=== PATIENT | male | born 1960 | race Hispanic/Latino ===

== ENCOUNTER 2024-11-17 07:20 | Inpatient (IN) | payer SELFPAY ==
[~2024-11-17] VITALS: Ht 185.4 cm; Wt 82.6 kg
--- NOTE | 2024-11-17 07:30 | NUR ---
SITUATED IN RM 15 NOW.
--- NOTE | 2024-11-17 07:32 | ERN ---
General Chief Complaint: Abnormal Labs Stated Complaint: ABNORMAL LABS Time Seen by MD: 07:26 Source: patient History of Present Illness Initial Comments Patient is a 64 y/o male here for evaluation of abnormal labs. Per patient he was been seen for his gout and labs were collected . Labs showed low platelets, which her pcp notified him abnout thew abnormal labs. Patient states he is feeling fine and is here for further evaluation/. Allergies: Coded Allergies: No Known Drug Allergies (Unverified Allergy, Unknown, 11/17/24) Past Medical History Past Medical History: No Pertinent History Past Surgical History: None ROS Dictation CONSTITUTIONAL: No chills, no fever, no weakness, no diaphoresis, no malaise. HEAD/FACE: No signs of trauma. EENT: No eye pain, no blurred vision, no tearing, no double vision, no ear pain, no ear discharge, no nose pain, no nasal congestion, no throat pain, no throat swelling, no mouth pain. RESPIRATORY: No cough, no orthopnea, no SOB, no stridor, no wheezing. CARDIOVASCULAR: No chest pain, no edema, no palpitations, no syncope. GASTROINTESTINAL/ABDOMINAL: No abdominal pain, no constipation, no diarrhea, no nausea, no vomiting. GENITOURINARY: No abnormal discharge, no dysuria, no frequent urination, no hematuria. No complaints of pain in the genitals. MUSCULOSKELETAL: No back pain, no gout, no joint pain, no joint swelling, no muscle pain, no muscle stiffness, no neck pain. INTEGUMENTARY: No change in color, no change in hair/nails, no dryness, no lesion, no lumps, no rash. NEUROLOGICAL/PSYCH: No anxiety, not depressed, no emotional problem, no headache, no numbness, no pre-existing deficit, no history of seizures, no tremors, no weakness. HEMATOLOGIC/LYMPHATIC: Not anemic, no history of blood clots, no apparent bleeding, no bruising, glands not swollen. All Systems Negative, Except as Noted. Physical Exam Physical Exam Dictation VITAL SIGNS: Reviewed. GENERAL APPEARANCE: Alert, oriented x3, no acute distress, obese. HEAD AND FACE: Non-traumatic. EYES: PERRL, pink conjunctivas, eyelid no trauma, anterior chamber clear. EARS: Pinnas intact and no signs of trauma or erythema. Ear canals clear and no discharge. TMs no erythema. NOSE: No discharge, no bleeding. OROPHARYNX: Mouth normal, teeth no caries, tongue pink. Pharynx clear, no erythema. Tonsils no exudates, no abscesses noted. Mucous membrane moist. NECK: Supple, non-tender, no thyromegaly, no masses, no JVD, no bruits. BREAST: Deferred. CHEST: No tenderness, no crepitus, no paradoxical movement, no retractions. LUNGS: Clear, well-ventilated, symmetric, no rales, no wheezing, no rhonchi, no stridor, good breath sounds bilaterally. HEART: Regular rate, regular rhythm, no murmur, no gallops. VASCULAR: No peripheral edema. ABDOMEN: Soft, positive bowel sounds, nondistended, no guarding, nontender, no rebound, no masses no hepatomegaly, no splenomegaly, no Rivera's sign, no hernias. RECTAL: Deferred. GENITAL: Deferred. NEUROLOGICAL: Normal speech, gross motor function intact, gross sensory function intact. MUSCULOSKELETAL: Neck nontender, full range of motion, back nontender, full range of motion. EXTREMITIES: Nontender, full range of motion. SKIN: Color pink, dry, no turgor, no rash, no lacerations, no abrasions, no contusions. LYMPHATICS: Deferred. Results Laboratory and Microbiology Lab and Micro Result Laboratory Tests Test 11/17/24 07:53 White Blood Count 5.6 K/uL (4.8-10.8) Red Blood Count 4.99 MIL/uL (4.50-6.20) Hemoglobin 17.3 g/dL (14.0-18.0) Hematocrit 46.8 % (42-54) Mean Corpuscular Volume 93.8 fL (79-99) Mean Corpuscular Hemoglobin 34.7 pg (27.0-33.0) H Mean Corpuscular Hemoglobin Concent 37.0 g/dL (32.0-36.0) H Red Cell Distribution Width 12.6 % (11.0-15.5) Platelet Count 63 K/uL (130-400) L Mean Platelet Volume 10.3 fL (7.5-10.5) Immature Granulocyte % (Auto) 0.4 % (0-1) Neutrophils (%) (Auto) 59.8 % (40.0-77.0) Lymphocytes (%) (Auto) 28.5 % (21.0-51.0) Monocytes (%) (Auto) 7.4 % (3.0-13.0) Eosinophils (%) (Auto) 3.4 % (0.0-8.0) Basophils (%) (Auto) 0.5 % (0.0-5.0) Neutrophils # (Auto) 3.4 K/uL (1.8-7.7) Lymphocytes # (Auto) 1.6 K/uL (1.0-4.8) Monocytes # (Auto) 0.4 K/uL (0.1-1.0) Eosinophils # (Auto) 0.19 K/uL (0.00-0.70) Basophils # (Auto) 0.03 K/uL (0.00-0.20) Absolute Immature Granulocyte (auto 0.02 K/uL (0-1) Nucleated Red Blood Cells 0.0 % (0.0-0.19) Sodium Level 140 mmol/L (136-145) Potassium Level 4.0 mmol/L (3.5-5.1) Chloride Level 103 mmol/L (101-111) Carbon Dioxide Level 29 mmol/L (21-32) Blood Urea Nitrogen 16 mg/dL (7-18) Creatinine 1.0 mg/dL (0.5-1.3) Glomerular Filtration Rate Calc 85 mL/min (>90) Random Glucose 149 mg/dL (70-105) H Total Calcium 9.2 mg/dL (8.5-10.1) Labs Reviewed?: Yes MDM MDM: Differential diagnosis: ITP, acute thrombocytopenia, Rationale: Tests considered and ordered secondary to shared decision making include: Previous outside records reviewed: Old ER visits. Risk of complication and/or morbidity or mortality of patient management: None Medications-Per medication reconciliation Need for hospitalization: Patient does meet criteria for hospitalization. Need for emergency major/minor surgery: No There are no social concerns with this patient. Prescription drug management Prescriptions will include symptomatic care Patient's prior external medical records from other ER visits were reviewed by me as indicated. Prior testing and results from previous visits were reviewed. Prior tests were taken into account with medical decision making and resource utilization, independent historian/historians were used to obtain complete medical history. I independently interpreted the test that were performed, results were reviewed by me and considered findings on radiology if ordered. Medical management and examination interpretation discussions were had by me with other qualified healthcare professionals as indicated for the patient's care. Patient will be admitted under the care of hospitalist group for ongoing management. ED Course Orders Procedure Category Date Status Time Cbc With Differential LAB 11/17/24 In Process 07:26 Basic Metabolic Panel LAB 11/17/24 Complete 07:26 Vital Signs Date Time Temp Pulse Resp B/P (MAP) Pulse Ox O2 Delivery O2 Flow Rate FiO2 11/17/24 07:59 57 16 138/86 97 Room Air* 0 21 11/17/24 07:24 97.9 61 17 141/90 98 Room Air 0 DX & DISP Disposition: Inpatient Decision to Admit Time: 09:28 Departure Impression: Primary Impression: Acute ITP Condition: Stable Referrals: SELF,REFERRAL (PCP) JONAS KAY MD Nov 17, 2024 07:32
[2024-11-17 08:02] LABS: IMMATURE GRANULOCYTE ABSOLUTE 0.02 K/uL (0-1); NUCLEATED RED BLOOD CELLS 0.0 % (0.0-0.19); PLATELET COUNT (AUTO) 63 K/uL (130-400); RED BLOOD CELL COUNT(AUTO) 4.99 MIL/uL (4.50-6.20); RED CELL DISTRIBUTION WIDTH 12.6 % (11.0-15.5); WHITE BLOOD COUNT (AUTO) 5.6 K/uL (4.8-10.8)
[2024-11-17 08:13] LABS: CREATININE 1.0 mg/dL (0.5-1.3); GLOMERULAR FILTR. RATE CALC 85.0 mL/min (>90); GLUCOSE,RANDOM 149.0 mg/dL (70-105); SODIUM SERUM 140.0 mmol/L (136-145); UREA NITROGEN, BLOOD 16.0 mg/dL (7-18)
[2024-11-17] MEDS ORDERED: PHARMACY COMMUNICATION MISC PRN (10:00)
--- NOTE | 2024-11-17 10:01 | HP ---
[facility] HISTORY AND PHYSICAL Date of Service: Nov 17, 2024 Time of Service: 10:00 HISTORY OF PRESENT ILLNESS: 64-year-old male with history of alcohol use who presented to the hospital secondary to abnormal labs. Patient had seen his primary care provider in [place] due to concern for gout. He had his labs checked including CBC, CMP. He was noted to have low platelet count of 912881 and his liver markers were also elevated including GGT. He was treated for gout and was recommended to come to the hospital for further evaluation. Patient denies any chest pain, abdominal pain, nausea, vomiting, melena, hematochezia, hematemesis. He does state he gets short of breath with activity sometimes but is able to perform yd work at home. Denies any falls, syncopal episode. Denied any epistaxis, mucosal bleeding. Denied any previous history of excessive bleeding from cuts. He has noted bruises on his upper extremity. Denies any diarrhea, fever, chills, night sweats, weight loss. He was also noted to have elevated blood pressure in his primary care's office with systolics noted to be in the 180s. He currently does not take any medications at home. He also does not check his blood pressure at home. Patient denied any upper or lower extremity weakness. The patient does endorse smoking alcohol and he drinks around 4-5 beers every other day for at least 20 years. His last drink was two days ago. Denies any anxiety, hallucinations, suicidal, homicidal ideation. Secondary to abnormal aspiration was brought to the hospital for further evaluation In the ED labs were notable for white count of 5.6, hemoglobin was 17.3, [place] [address], was 140, potassium was 4.0, chloride was 103, creatinine was 1.0, blood glucose was 149. Patient had a abdominal ultrasound done in [place] which is currently in [place]. Per patient it was noted to be normal On presentation to the ED patient's temperature was 97.9, heart rate was 61, blood pressure was 141/90, patient was saturating 98% on room REVIEW OF SYSTEMS CONSTITUTIONAL: Denies fevers, chills, or night sweats. No unintentional weight loss reported. NEUROLOGICAL: Denies headache, amaurosis fugax, motor weakness, sensory deficit, vertigo/spinning sensation, gait abnormalities, or tremors. ENT: No hearing loss, otalgia, otorrhea, rhinitis, rhinorrhea, hoarseness, or sore throat. CARDIOVASCULAR: Denies any exertional angina, dyspnea on exertion, orthopnea, paroxysmal nocturnal dyspnea, palpitations, life-threatening arrhythmias, claudication. PULMONARY: Denies any cough, phlegm/sputum, hemoptysis, pleuritic chest pain. Positive for shortness of breaths SLEEP: Denies morning headaches, daytime somnolence or napping. Denies difficulty falling asleep, staying asleep, waking from sleep. Denies knowledge of snoring. GASTROINTESTINAL: Positive for abdominal distention. Denied any abdominal pa in, nausea, vomiting, melena, hematochezia, hematemesis GENITOURINARY: Denies frequency, urgency, nocturia, hematuria or incontinence (Storage/Irritative symptoms.) Low urinary stream, straining to void, urinary intermittency or hesitancy, splitting of the voiding stream, terminal dribbling. ENDOCRINOLOGIC: Denies polyuria, polydipsia, polyphagia or heat/cold intolerances. HEMATOLOGIC: Denies thrombophilia/previous clots, or coagulopathy/bleeding disorders. ONCOLOGIC: Denies personal history of malignancy. DERMATOLOGIC: Denies rashes or pruritus. PSYCHIATRIC: Denies any suicidal or homicidal ideation. Denies hallucinations. PAST MEDICAL HISTORY: History of alcohol use PAST SURGICAL HISTORY: Denied any previous surgical history PAST SOCIAL HISTORY: Denied any smoking. Drinks around 4-5 beers every other day for at least 20 years. Denied any drug use FAMILY HISTORY: Denied any pertinent family history Coded Allergies: No Known Drug Allergies (Unverified Allergy, Unknown, 11/17/24) PHYSICAL EXAM GENERAL APPEARANCE: The patient is awake, alert, and oriented, in no acute cardiopulmonary distress. NEUROLOGICAL: Cranial nerves II-XII grossly intact. Motor is 5/5 in bilateral upper and lower extremities proximal to distal. No sensory deficits. HEENT: Face is symmetric. Pupils are equal and reactive. Extraocular movements are intact. NECK: Supple. No JVD. No thyromegaly. No submental, submandibular, pre- /postauricular, occipital or supraclavicular lymphadenopathy. CHEST: Normal chest expansion. No Telemetry. LUNGS: Absence of any rales, rhonchi or any wheezing. CARDIOVASCULAR: Regular. S1 and S2 normal. No appreciable rubs, murmurs or gallops. ABDOMEN: Soft, nontender, and mildly distended. There is no rebound, voluntary guarding, or rigidity. : Deferred. No Wolf. EXTREMITIES: Non-edematous and not cyanotic. No clubbing. Good capillary refill. SKIN: Small skin bruising noted in the upper extremity Vital Sign (Last 24 Hours) 11/17/24 11/17/24 07:24 07:59 Temp 97.9 Pulse 57 Resp 16 B/P (MAP) 138/86 Pulse Ox 97 O2 Delivery Room Air* O2 Flow Rate 0 FiO2 21 LABS: Laboratory: Test 11/17/24 07:53 Range/Units White Blood Count 5.6 4.8-10.8 K/uL Red Blood Count 4.99 4.50-6.20 MIL/uL Hemoglobin 17.3 14.0-18.0 g/dL Hematocrit 46.8 42-54 % Mean Corpuscular Volume 93.8 79-99 fL Mean Corpuscular Hemoglobin 34.7 H 27.0-33.0 pg Mean Corpuscular Hemoglobin Concent 37.0 H 32.0-36.0 g/dL Red Cell Distribution Width 12.6 11.0-15.5 % Platelet Count 63 L 130-400 K/uL Mean Platelet Volume 10.3 7.5-10.5 fL Immature Granulocyte % (Auto) 0.4 0-1 % Neutrophils (%) (Auto) 59.8 40.0-77.0 % Lymphocytes (%) (Auto) 28.5 21.0-51.0 % Monocytes (%) (Auto) 7.4 3.0-13.0 % Eosinophils (%) (Auto) 3.4 0.0-8.0 % Basophils (%) (Auto) 0.5 0.0-5.0 % Neutrophils # (Auto) 3.4 1.8-7.7 K/uL Lymphocytes # (Auto) 1.6 1.0-4.8 K/uL Monocytes # (Auto) 0.4 0.1-1.0 K/uL Eosinophils # (Auto) 0.19 0.00-0.70 K/uL Basophils # (Auto) 0.03 0.00-0.20 K/uL Absolute Immature Granulocyte (auto 0.02 0-1 K/uL Nucleated Red Blood Cells 0.0 0.0-0.19 % Sodium Level 140 136-145 mmol/L Potassium Level 4.0 3.5-5.1 mmol/L Chloride Level 103 101-111 mmol/L Carbon Dioxide Level 29 21-32 mmol/L Blood Urea Nitrogen 16 7-18 mg/dL Creatinine 1.0 0.5-1.3 mg/dL Glomerular Filtration Rate Calc 85 >90 mL/min Random Glucose 149 H 70-105 mg/dL Total Calcium 9.2 8.5-10.1 mg/dL Current Medications Medications (Trade) Dose Ordered Sig/Judi Route PRN Reason Start Time Stop Time Status Last Admin Dose Admin Chlordiazepoxide HCl (LIBrium 25 MG CAP) 25 mg Q4H PRN PO ALCOHOL WITHDRAWAL PROTOCOL 11/17/24 10:00 11/24/24 09:59 UNV Famotidine (Pepcid 20mg Vial) 20 mg BID IV 11/17/24 21:00 12/17/24 20:59 UNV Hydralazine HCl (APRESOLine 20MG INJ) 10 mg Q6H PRN IV ADMINISTER FOR SBP > 180 11/17/24 10:00 12/17/24 09:59 UNV Pharmacy Profile Note (Pharmacy Communication) 1 each PROTOCOL PRN MISC ETOH Withdrawal Score changes 11/17/24 10:00 11/24/24 09:59 UNV Thiamine HCl 100 mg/Folic Acid 1 mg/Multivitamins/ Minerals 10 ml/ Sodium Chloride 1,011.2 ml @ 100 mls/ hr Q24H IV 11/17/24 10:00 11/19/24 20:07 UNV DIAGNOSTICS / RADIOLOGY: [ ] ASSESSMENT: Moderate Thrombocytopenia Elevated LFT History of alcohol use PLAN: - patient to be admitted to medical-surgical unit with telemetry under observation -in reference to thrombocytopenia. We will check CBC with manual differential. We will obtain hepatitis panel, HIV, KAMLESH. Obtain a CT abdomen pelvis. Thrombocytopenia likely in setting of alcohol use. We will request consultation with Hematology. -in reference to elevated LFT. Obtain a LFT panel. We will follow up on CT abdomen pelvis. Obtain a hepatitis panel. -patient to be monitored for alcohol withdrawals. Patient to be started on banana bag -closely monitor for hypertension. We will consider initiation of antihypertensive blood pressure remains elevated. Patient remains normotensive when seen at bedside - further orders per hospitalization course Advanced Care Planning Which of the following were discussed: Hospice care: Yes __ No _x_ Therapeutic options: Yes __ No __ Advance directives: Yes __ No __ Other discussions: Pt is full code Discussed with who?: patient (Patient, family or surrogates) Voluntary nature of this service was explained to the patient? Yes _x_ No __ Amount of time spent: 20 minutes NYA Santana MD, MD Nov 17, 2024 10:01
[2024-11-17 10:16] LABS: PLATELET MORPHOLOGY COMMENT DECREASED
[2024-11-17 10:28] LABS: INR 1.05 (0.85-1.15)
[2024-11-17] MEDS ORDERED: PHARMACY COMMUNICATION MISC SCH (10:30)
[2024-11-17 10:51] LABS: ASPARTATE AMINOTRANSFERASE 48.0 U/L (10-37); TOTAL PROTEIN, SERUM 7.7 g/dL (6.0-8.3)
[2024-11-17 10:54] LABS: HIV 1&2 ANTIBODY Non-Reactive (Negative)
[2024-11-17 11:06] LABS: NUCLEATED RED BLOOD CELLS 0.0 % (0.0-0.19); PLATELET COUNT (AUTO) 60 K/uL (130-400); RED BLOOD CELL COUNT(AUTO) 5.00 MIL/uL (4.50-6.20); RED CELL DISTRIBUTION WIDTH 12.6 % (11.0-15.5); WHITE BLOOD COUNT (AUTO) 5.4 K/uL (4.8-10.8)
--- NOTE | 2024-11-17 11:14 | HMCIMG ---
EXAM: CR Chest, 1 View. CLINICAL HISTORY: SOB COMPARISON: None provided. FINDINGS: LUNGS: The lungs show no infiltrate or other acute finding. PLEURAL SPACES: No pleural effusion or pneumothorax. MEDIASTINUM: Cardiac size and mediastinal contours within normal limits. BONES: No acute osseous abnormality. IMPRESSION: No acute cardiopulmonary pathology is evident. /[place]
[2024-11-17 11:22] LABS: ALCOHOL, BLOOD < 3 mg/dL (0-10)
[2024-11-17 11:23] LABS: GAMMA GLUTAMYL TRANSFERASE 657 U/L (5-85)
--- NOTE | 2024-11-17 11:25 | NUR ---
CRITICAL LAB REPORTED
--- NOTE | 2024-11-17 11:31 | HMCIMG ---
EXAM: CT Abdomen and Pelvis without IV contrast CLINICAL HISTORY: Abdominal distention. Elevated LFT. TECHNIQUE: Thin collimated axial CT images of the abdomen and pelvis were obtained with sagittal and coronal reformatted images also submitted. CT scan is done according to ALARA (As Low As Reasonably Achievable). CONTRAST: None. COMPARISON: None. FINDINGS: Unremarkable visualized lung parenchyma. No focal abnormality within the gallbladder, pancreas, adrenals, or kidneys. The liver is small with diffuse surface nodularity, suggesting liver cirrhosis. Multiple tiny calcifications within the liver. Mild splenomegaly. There is no obvious bowel wall thickening. Bowel loops are normal in caliber without evidence of obstruction or ileus. The appendix is normal. There is no abnormality within the urinary bladder. Unremarkable reproductive organs. No lymphadenopathy. No free fluid. Bilateral small inguinal hernia containing fat. There is no acute osseous abnormality. Mild thoracolumbar spondylosis. IMPRESSIONS: No acute process in the abdomen or pelvis. Liver cirrhosis. Mild splenomegaly. /[place]
[2024-11-17 11:36] LABS: AMPHET/METH SCREEN,URINE NEGATIVE (NEGATIVE); BARBITURATE SCREEN, URINE NEGATIVE (NEGATIVE); CANNABINOID SCREEN,URINE NEGATIVE (NEGATIVE); COCAINE SCREEN,URINE NEGATIVE (NEGATIVE)
[2024-11-17 12:04] LABS: BAND NEUTROPHILS % (MANUAL) 1 % (0-2); EOSINOPHILS % (MANUAL) 3 % (1-6); LYMPHOCYTES % (MANUAL) 17 % (22-44); MAN.DIFF COMMENT-IMPRESSION MANUAL DIFFERENTIAL; MONOCYTES % (MANUAL) 5 % (2-9); SEGMENTED NEUTROPHILS % 74 % (40-70)
[2024-11-17 12:05] LABS: PLATELET MORPHOLOGY COMMENT DECREASED
[2024-11-17] MEDS: THIAMINE HCL 100 MG, FOLic ACID 5 MG/ML VIAL 1 MG in 0.9%NACL 1000ML 1,000 ML IV SCH (12:31)
--- NOTE | 2024-11-17 13:27 | CONS ---
HEMATOLOGY CONSULTATION REASON FOR CONSULTATION: Thrombocytopenia. HISTORY OF PRESENT ILLNESS: This is a 64-year-old male patient admitted with complaints of abdominal pain. On lab work, he was found to have significant LFT elevation and thrombocytopenia. He admits to drinking at least a 6-pack daily for several years now. He denies any fever or chills. He denies any easy bruising or bleeding. He denies any hematochezia or melanotic stools. Weight has been stable. No nausea, vomiting. PAST MEDICAL HISTORY: Negative for hypertension, CAD, CVA. SOCIAL HISTORY: He denies any smoking, but drinks heavily, at least a 6-pack per day. No illicit drug use. , retired. FAMILY HISTORY: Noncontributory. MEDICATIONS: As per the chart. ALLERGIES: None. REVIEW OF SYSTEMS: As per history of present illness. PHYSICAL EXAMINATION: GENERAL: Elderly male patient, alert, in no acute distress. VITAL SIGNS: Stable, febrile. HEENT: With pale sclerae, no jaundice, no oropharyngeal lesions. NECK: Supple. No lymphadenopathy. HEART: Regular and rhythmic. LUNGS: Clear to auscultation bilaterally. ABDOMEN: Soft. Some tenderness to palpation in the upper abdomen. No organomegaly. Bowel sounds present. EXTREMITIES: No pitting edema. No calf tenderness. LABORATORY DATA: Lab data reviewed with a platelet count 60. LFT elevation. PT and PTT within normal limits. ASSESSMENT: * Thrombocytopenia, possible secondary to alcohol or hepatic disease. * LFT elevation. * Abdominal pain. PLAN: The patient remains stable. He is scheduled for abdominal ultrasound with followup results. Also recommended to have peripheral blood smear, hepatitis panel, HIV test. I will follow results and have our discussion. TID: [id number] RECEIPT: [id number]
--- NOTE | 2024-11-17 13:31 | NUR ---
REASSESSMENT OF CONTINOUS INFUSION
--- NOTE | 2024-11-17 13:38 | HMCIMG ---
EXAM: US Abdomen, Right Upper Quadrant. CLINICAL HISTORY: Assess for cirrhosis, gallbladder, and CBD. Elevated LFT. TECHNIQUE: Right upper quadrant sonography performed with image documentation. COMPARISON: CT from earlier today. FINDINGS: LIVER: Enlarged in size, measuring 17.5 cm, with coarse echotexture and surface nodularity. A small, simple cyst measuring 0.8 cm is seen in the left lobe. No other mass. GALLBLADDER: The gallbladder appears normal. Normal wall thickness, 0.3 cm. No gallstones are evident. COMMON BILE DUCT: No dilatation. PANCREAS: The visualized pancreas appears within normal limits. The distal pancreas is obscured by bowel gas. RIGHT KIDNEY: Unremarkable. Normal renal contours. No renal mass or calculus. No hydronephrosis.IMPRESSION: 1. Enlarged liver with coarse echotexture and surface nodularity, consistent with cirrhosis. /[place]
--- NOTE | 2024-11-17 13:39 | CONS ---
GASTROENTEROLOGY CONSULTATION NOTE Date of Consultation: Nov 17, 2024 Time of Consultation: 13:36 History of Present Illness: [ WBC 5.6, hemoglobin 17.3, hematocrit 46.8, platelets 63. Mood chemistry significant for total bilirubin 1.7, direct bilirubin five AST 48, ALT 130, albumin 3.8, alkaline phos 140. CT of abdomen pelvis significant for liver cirrhosis, and mild splenomegaly. Chest x-ray negative for any acute cardiopulmonary pathology. Abdominal ultrasound is pending. On exam patient is awake alert and oriented x3. He is resting in stretcher in ER bed 15 in no acute distress. Patient reports drinking five beers daily for the past 20 years. He has bilateral breath sounds are clear. Abdomen is soft and nondistended. CT scan results given to patient. And pending abdominal ultra sound. Recommended abstaining from alcohol intake. Liver serologies are ordered. Patient verbalized understanding. ] Review of Systems: CONSTITUTIONAL: No malaise or change in sensation of wellbeing. ENMT: No rhinorrhea, otorrhea, sinus pain, ear ache. CARDIOVASCULAR: No angina, palpitations, orthopnea or paroxysmal dyspnea. RESPIRATORY: No SOB. GASTROINTESTINAL: No abdominal pain, nausea, vomiting, diarrhea, hematemesis, melena or change in the patient's habitual bowel movements consistency/number. GENITOURINARY: No dysuria, hematuria or change in bladder continence. MUSCULOSKELETAL: No new muscle pain or decrease in muscular strength. No new joint swelling, redness or tenderness. SKIN: No new rash. Past Medical History: History of alcohol use PAST SURGICAL HISTORY: Denied any previous surgical history PAST SOCIAL HISTORY: Denied any smoking. Drinks around 4-5 beers every other day for at least 20 years. Denied any drug use FAMILY HISTORY: Denied any pertinent family history Coded Allergies: No Known Drug Allergies (Unverified Allergy, Unknown, 11/17/24) Coded Allergies: No Known Drug Allergies (Unverified Allergy, Unknown, 11/17/24) Physical Exam: GEN: Awake, alert, oriented in person, time and place, and in no acute distress. HEENT: No rhinorrhea. Oral pharyngeal mucosa is pink, moist and within normal limit. CHEST: Inspection, palpation of the chest were unremarkable. Lung auscultation revealed normal breath sounds bilaterally. CARDIAC: PMI is within normal limits. Heart sounds are regular. ABD: Soft, non-tender and not distended. No peritoneal signs on palpation. No organomegaly. Normal bowel sounds. EXT: No cyanosis or clubbing. No edema. SKIN: Intact. No rashes. JOINTS: No evidence of synovitis or acute arthritis. NEURO: Alert and oriented to name, place and person. No focal motor deficits. Normal speech. Strength is normal. Vital Sign (Last 24 Hours) 11/17/24 12:00 Temp 97.9 Pulse 60 Resp 16 B/P (MAP) 130/92 Pulse Ox 97 O2 Delivery Room Air* O2 Flow Rate 0 FiO2 21 Laboratory: [ ] Laboratory: Test 11/17/24 11:08 11/17/24 10:54 11/17/24 07:55 11/17/24 07:53 Range/Units Urine Opiates Screen NEGATIVE NEGATIVE Urine Barbiturates Screen NEGATIVE NEGATIVE Urine Phencyclidine Screen NEGATIVE NEGATIVE Urine Amphetamines Screen NEGATIVE NEGATIVE Urine Benzodiazepines Screen NEGATIVE NEGATIVE Urine Cocaine Screen NEGATIVE NEGATIVE Urine Marijuana (THC) Screen NEGATIVE NEGATIVE White Blood Count 5.4 4.8-10.8 K/uL Red Blood Count 5.00 4.50-6.20 MIL/uL Hemoglobin 17.5 14.0-18.0 g/dL Hematocrit 47.3 42-54 % Mean Corpuscular Volume 94.6 79-99 fL Mean Corpuscular Hemoglobin 35.0 H 27.0-33.0 pg Mean Corpuscular Hemoglobin Concent 37.0 H 32.0-36.0 g/dL Red Cell Distribution Width 12.6 11.0-15.5 % Platelet Count 60 L 130-400 K/uL Mean Platelet Volume 10.5 7.5-10.5 fL Segmented Neutrophils % 74 H 40-70 % Band Neutrophils % 1 0-2 % Lymphocytes % (Manual) 17 L 22-44 % Monocytes % (Manual) 5 2-9 % Eosinophils % (Manual) 3 1-6 % Nucleated Red Blood Cells 0.0 0.0-0.19 % Differential Comment MANUAL DIFFERENTIAL White Cell Morphology Comment Platelet Morphology Comment DECREASED Red Blood Cell Morphology ANISO 1+ Gamma Glutamyl Transpeptidase 657 *H 5-85 U/L B-Type Natriuretic Peptide 25 0-100 pg/mL Serum Alcohol < 3 0-10 mg/dL Prothrombin Time 11.1 9.6-11.6 SEC Prothromb Time International Ratio 1.05 0.85-1.15 Activated Partial Thromboplast Time 27.0 26.3-35.5 SEC Hemoglobin A1c 5.9 4.0-6.0 % Estimated Average Glucose (eAG) 123 70-126 mg/dL Total Bilirubin 1.7 H 0.2-1.0 mg/dL Direct Bilirubin 0.5 H 0.0-0.3 mg/dL Aspartate Amino Transf (AST/SGOT) 48 H 10-37 U/L Alanine Aminotransferase (ALT/SGPT) 130 H 12-78 U/L Alkaline Phosphatase 130 50-136 U/L Total Protein 7.7 6.0-8.3 g/dL Albumin 3.8 3.5-5.0 g/dL Thyroid Stimulating Hormone (TSH) 5.65 H 0.36-3.74 uIU/mL HIV (1&2) Antibody Non-Reactive Negative HIV P24 Antigen, Qualitative Non-Reactive Negative Immature Granulocyte % (Auto) 0.4 0-1 % Neutrophils (%) (Auto) 59.8 40.0-77.0 % Lymphocytes (%) (Auto) 28.5 21.0-51.0 % Monocytes (%) (Auto) 7.4 3.0-13.0 % Eosinophils (%) (Auto) 3.4 0.0-8.0 % Basophils (%) (Auto) 0.5 0.0-5.0 % Neutrophils # (Auto) 3.4 1.8-7.7 K/uL Lymphocytes # (Auto) 1.6 1.0-4.8 K/uL Monocytes # (Auto) 0.4 0.1-1.0 K/uL Eosinophils # (Auto) 0.19 0.00-0.70 K/uL Basophils # (Auto) 0.03 0.00-0.20 K/uL Absolute Immature Granulocyte (auto 0.02 0-1 K/uL Sodium Level 140 136-145 mmol/L Potassium Level 4.0 3.5-5.1 mmol/L Chloride Level 103 101-111 mmol/L Carbon Dioxide Level 29 21-32 mmol/L Blood Urea Nitrogen 16 7-18 mg/dL Creatinine 1.0 0.5-1.3 mg/dL Glomerular Filtration Rate Calc 85 >90 mL/min Random Glucose 149 H 70-105 mg/dL Total Calcium 9.2 8.5-10.1 mg/dL Current Medications Medications (Trade) Dose Ordered Sig/Judi Route PRN Reason Start Time Stop Time Status Last Admin Dose Admin Chlordiazepoxide HCl (LIBrium 25 MG CAP) 25 mg Q4H PRN PO ALCOHOL WITHDRAWAL PROTOCOL 11/17/24 10:00 11/24/24 09:59 Famotidine (Pepcid 20mg Vial) 20 mg BID IV 11/17/24 21:00 12/17/24 20:59 Hydralazine HCl (APRESOLine 20MG INJ) 10 mg Q6H PRN IV ADMINISTER FOR SBP > 180 11/17/24 10:00 12/17/24 09:59 Pharmacy Profile Note (Pharmacy Communication) AD MISC 11/17/24 10:30 11/24/24 10:29 Pharmacy Profile Note (Pharmacy Communication) 1 each PROTOCOL PRN MISC ETOH Withdrawal Score changes 11/17/24 10:00 11/24/24 09:59 Thiamine HCl 100 mg/Folic Acid 1 mg/Sodium Chloride 1,011.2 ml @ 100 mls/ hr Q24H IV 11/17/24 11:00 11/19/24 21:07 11/17/24 12:31 100 MLS/HR Diagnostics / Radiology: [COPY/PASTE HERE IF NO REPORTS PLEASE DELETE SECTION] Assessment: [ Abnormal liver enzymes Gout Liver cirrhosis] Plan: [ No gi Endoscopic intervention at this time. Liver serologies ordered. Abdominal ultrasound pending Please call with questions, concerns, and/or change in clinical status. Thank you for this consult ] KIKO RAHMAN NP Nov 17, 2024 13:39
--- NOTE | 2024-11-17 15:10 | NUR ---
ASSUMED PATIENTS CARE.
--- NOTE | 2024-11-17 16:00 | NUR ---
PATIENT STATED HE DOES NOT TAKE ANY HOME MEDICATIONS.
[2024-11-17] MEDS: FAMOTIDINE 20MG VIAL IV SCH (23:43)
--- NOTE | 2024-11-18 02:10 | NUR ---
CALLED JACQUELIN FOR REPORT. DISCUSSED LABS, PLAN OF CARE, IMAGING AND SCHEDULED MEDICATIONS.
[2024-11-18 02:30] VITALS: BP 121/75; PULSE 58; RESP 20; TEMP 98.5
[2024-11-18 03:50] VITALS: O2SAT 95
[2024-11-18 07:04] LABS: IMMATURE GRANULOCYTE ABSOLUTE 0.02 K/uL (0-1); NUCLEATED RED BLOOD CELLS 0.0 % (0.0-0.19); PLATELET COUNT (AUTO) 68 K/uL (130-400); RED BLOOD CELL COUNT(AUTO) 4.60 MIL/uL (4.50-6.20); RED CELL DISTRIBUTION WIDTH 12.6 % (11.0-15.5); WHITE BLOOD COUNT (AUTO) 5.2 K/uL (4.8-10.8)
[2024-11-18 07:18] LABS: ASPARTATE AMINOTRANSFERASE 43.0 U/L (10-37); CREATININE 1.0 mg/dL (0.5-1.3); GLOMERULAR FILTR. RATE CALC 85.0 mL/min (>90); GLUCOSE,RANDOM 136.0 mg/dL (70-105); SODIUM SERUM 140.0 mmol/L (136-145); TOTAL PROTEIN, SERUM 6.5 g/dL (6.0-8.3); UREA NITROGEN, BLOOD 19.0 mg/dL (7-18)
[2024-11-18 08:00] VITALS: BP 139/78; PULSE 55; RESP 16; TEMP 98.5; O2SAT 99
--- NOTE | 2024-11-18 11:21 | PN ---
GASTROENTEROLOGY PROGRESS NOTE Date of Visit: Nov 18, 2024 Time of Visit: 11:18 Events / Notes: [ WBC 5.6, hemoglobin 17.3, hematocrit 46.8, platelets 63. Mood chemistry significant for total bilirubin 1.7, direct bilirubin five AST 48, ALT 130, albumin 3.8, alkaline phos 140. CT of abdomen pelvis significant for liver cirrhosis, and mild splenomegaly. Chest x-ray negative for any acute cardiopulmonary pathology. Abdominal ultrasound is pending. On exam patient is awake alert and oriented x3. He is resting in stretcher in ER bed 15 in no acute distress. Patient reports drinking five beers daily for the past 20 years. He has bilateral breath sounds are clear. Abdomen is soft and nondistended. CT scan results given to patient. And pending abdominal ultrasound. Recommended abstaining from alcohol intake. Liver serologies are ordered. Patient verbalized understanding. 11/18/24: Patient's VSS. WBC 5.2, hemoglobin 16.0, platelets 68. Chemistry significant for BUN of 19, calcium 8.3, total bilirubin trending down at 1.3, T 43, ALT is 100, albumin 3.2, alkaline phos 103. AFP 3.4. Abdominal ultrasound findings: Enlarged liver with coarse echotexture and surface nodularity, consistent with cirrhosis. No dilation of common bile duct. ] Review of Systems: CONSTITUTIONAL: No malaise or change in sensation of wellbeing. ENMT: No rhinorrhea, otorrhea, sinus pain, ear ache. CARDIOVASCULAR: No angina, palpitations, orthopnea or paroxysmal dyspnea. RESPIRATORY: No SOB. GASTROINTESTINAL: No abdominal pain, nausea, vomiting, diarrhea, hematemesis, melena or change in the patient's habitual bowel movements consistency/number. GENITOURINARY: No dysuria, hematuria or change in bladder continence. MUSCULOSKELETAL: No new muscle pain or decrease in muscular strength. No new joint swelling, redness or tenderness. SKIN: No new rash. Physical Exam: GEN: Awake, alert, oriented in person, time and place, and in no acute distress. HEENT: No rhinorrhea. Oral pharyngeal mucosa is pink, moist and within normal limit. CHEST: Inspection, palpation of the chest were unremarkable. Lung auscultation revealed normal breath sounds bilaterally. CARDIAC: PMI is within normal limits. Heart sounds are regular. ABD: Soft, non-tender and not distended. No peritoneal signs on palpation. No organomegaly. Normal bowel sounds. EXT: No cyanosis or clubbing. No edema. SKIN: Intact. No rashes. JOINTS: No evidence of synovitis or acute arthritis. NEURO: Alert and oriented to name, place and person. No focal motor deficits. Normal speech. Strength is normal. Vital Signs (last 8hr) Date Time Temp Pulse Resp B/P (MAP) Pulse Ox O2 Delivery O2 Flow Rate FiO2 11/18/24 08:00 99 Room Air* 0 21 11/18/24 08:00 98.4 55 16 139/78 99 Room Air 11/18/24 03:50 95 Room Air* 0 21 Laboratory: [ ] Laboratory: Test 11/18/24 06:38 11/17/24 11:08 11/17/24 10:54 11/17/24 07:55 Range/Units White Blood Count 5.2 4.8-10.8 K/uL Red Blood Count 4.60 4.50-6.20 MIL/uL Hemoglobin 16.0 14.0-18.0 g/dL Hematocrit 44.0 42-54 % Mean Corpuscular Volume 95.7 79-99 fL Mean Corpuscular Hemoglobin 34.8 H 27.0-33.0 pg Mean Corpuscular Hemoglobin Concent 36.4 H 32.0-36.0 g/dL Red Cell Distribution Width 12.6 11.0-15.5 % Platelet Count 68 L 130-400 K/uL Mean Platelet Volume 10.9 H 7.5-10.5 fL Immature Granulocyte % (Auto) 0.4 0-1 % Neutrophils (%) (Auto) 59.1 40.0-77.0 % Lymphocytes (%) (Auto) 28.3 21.0-51.0 % Monocytes (%) (Auto) 8.5 3.0-13.0 % Eosinophils (%) (Auto) 3.5 0.0-8.0 % Basophils (%) (Auto) 0.2 0.0-5.0 % Neutrophils # (Auto) 3.1 1.8-7.7 K/uL Lymphocytes # (Auto) 1.5 1.0-4.8 K/uL Monocytes # (Auto) 0.4 0.1-1.0 K/uL Eosinophils # (Auto) 0.18 0.00-0.70 K/uL Basophils # (Auto) 0.01 0.00-0.20 K/uL Absolute Immature Granulocyte (auto 0.02 0-1 K/uL Nucleated Red Blood Cells 0.0 0.0-0.19 % Sodium Level 140 136-145 mmol/L Potassium Level 4.3 3.5-5.1 mmol/L Chloride Level 104 101-111 mmol/L Carbon Dioxide Level 31 21-32 mmol/L Blood Urea Nitrogen 19 H 7-18 mg/dL Creatinine 1.0 0.5-1.3 mg/dL Glomerular Filtration Rate Calc 85 >90 mL/min Random Glucose 136 H 70-105 mg/dL Total Calcium 8.3 L 8.5-10.1 mg/dL Total Bilirubin 1.3 #H 0.2-1.0 mg/dL Aspartate Amino Transf (AST/SGOT) 43 H 10-37 U/L Alanine Aminotransferase (ALT/SGPT) 100 #H 12-78 U/L Alkaline Phosphatase 103 50-136 U/L Total Protein 6.5 6.0-8.3 g/dL Albumin 3.2 L 3.5-5.0 g/dL Urine Opiates Screen NEGATIVE NEGATIVE Urine Barbiturates Screen NEGATIVE NEGATIVE Urine Phencyclidine Screen NEGATIVE NEGATIVE Urine Amphetamines Screen NEGATIVE NEGATIVE Urine Benzodiazepines Screen NEGATIVE NEGATIVE Urine Cocaine Screen NEGATIVE NEGATIVE Urine Marijuana (THC) Screen NEGATIVE NEGATIVE Segmented Neutrophils % 74 H 40-70 % Band Neutrophils % 1 0-2 % Lymphocytes % (Manual) 17 L 22-44 % Monocytes % (Manual) 5 2-9 % Eosinophils % (Manual) 3 1-6 % Differential Comment MANUAL DIFFERENTIAL White Cell Morphology Comment Platelet Morphology Comment DECREASED Red Blood Cell Morphology ANISO 1+ Gamma Glutamyl Transpeptidase 657 *H 5-85 U/L B-Type Natriuretic Peptide 25 0-100 pg/mL Tumor Marker Alpha Fetoprotein 3.4 0.0-8.4 ng/mL Serum Alcohol < 3 0-10 mg/dL Prothrombin Time 11.1 9.6-11.6 SEC Prothromb Time International Ratio 1.05 0.85-1.15 Activated Partial Thromboplast Time 27.0 26.3-35.5 SEC Hemoglobin A1c 5.9 4.0-6.0 % Estimated Average Glucose (eAG) 123 70-126 mg/dL Direct Bilirubin 0.5 H 0.0-0.3 mg/dL Thyroid Stimulating Hormone (TSH) 5.65 H 0.36-3.74 uIU/mL HIV (1&2) Antibody Non-Reactive Negative HIV P24 Antigen, Qualitative Non-Reactive Negative Current Medications Medications (Trade) Dose Ordered Sig/Judi Route PRN Reason Start Time Stop Time Status Last Admin Dose Admin Chlordiazepoxide HCl (LIBrium 25 MG CAP) 25 mg Q4H PRN PO ALCOHOL WITHDRAWAL PROTOCOL 11/17/24 10:00 11/24/24 09:59 Famotidine (Pepcid 20mg Vial) 20 mg BID IV 11/17/24 21:00 12/17/24 20:59 11/18/24 08:20 20 MG Hydralazine HCl (APRESOLine 20MG INJ) 10 mg Q6H PRN IV ADMINISTER FOR SBP > 180 11/17/24 10:00 12/17/24 09:59 Pharmacy Profile Note (Pharmacy Communication) AD MISC 11/17/24 10:30 11/18/24 10:36 DC Pharmacy Profile Note (Pharmacy Communication) 1 each PROTOCOL PRN MISC ETOH Withdrawal Score changes 11/17/24 10:00 11/24/24 09:59 Thiamine HCl 100 mg/Folic Acid 1 mg/Sodium Chloride 1,011.2 ml @ 100 mls/ hr Q24H IV 11/17/24 11:00 11/19/24 21:07 11/17/24 12:31 100 MLS/HR Diagnostics / Radiology: [COPY/PASTE HERE IF NO REPORTS PLEASE DELETE SECTION] Assessment: [ Abnormal liver enzymes Gout Liver cirrhosis] Plan: [ No gi Endoscopic intervention at this time. Liver serologies ordered. Please call with questions, concerns, and/or change in clinical status. Thank you for this consult ] KIKO RAHMAN NP Nov 18, 2024 11:21
[2024-11-18 12:00] VITALS: BP 126/77; PULSE 54; RESP 15; TEMP 97.6
--- NOTE | 2024-11-18 12:04 | PN ---
[facility] PROGRESS NOTE Date of Service: Nov 18, 2024 Time of Service: 12:03 SUBJECTIVE: HISTORY OF PRESENT ILLNESS: 64-year-old male with history of alcohol use who presented to the hospital secondary to abnormal labs. Patient had seen his primary care provider in [place] due to concern for gout. He had his labs checked including CBC, CMP. He was noted to have low platelet count of 582617 and his liver markers were also elevated including GGT. He was treated for gout and was recommended to come to the hospital for further evaluation. Patient denies any chest pain, abdominal pain, nausea, vomiting, melena, hematochezia, hematemesis. He does state he gets short of breath with activity sometimes but is able to perform yd work at home. Denies any falls, syncopal episode. Denied any epistaxis, mucosal bleeding. Denied any previous history of excessive bleeding from cuts. He has noted bruises on his upper extremity. Denies any diarrhea, fever, chills, night sweats, weight loss. He was also noted to have elevated blood pressure in his primary care's office with systolics noted to be in the 180s. He currently does not take any medications at home. He also does not check his blood pressure at home. Patient denied any upper or lower extremity weakness. The patient does endorse smoking alcohol and he drinks around 4-5 beers every other day for at least 20 years. His last drink was two days ago. Denies any anxiety, hallucinations, suicidal, homicidal ideation. Secondary to abnormal aspiration was brought to the hospital for further evaluation In the ED labs were notable for white count of 5.6, hemoglobin was 17.3, [place] [address], was 140, potassium was 4.0, chloride was 103, creatinine was 1.0, blood glucose was 149. Patient had a abdominal ultrasound done in [place] which is currently in [place]. Per patient it was noted to be normal On presentation to the ED patient's temperature was 97.9, heart rate was 61, blood pressure was 141/90, patient was saturating 98% on room 11/18/2024: The patient is examined at the bedside. He appears well rested, AAOX3. He currently reports her no abdominal pain, no chest pain, nausea, vomiting, melena. He reports no abnormal bleeding. Alpha antitrypsin, ceruloplasmin, mitochondrial antibodies, smooth muscle IgG antibodies results are pending. Current labs [place] [address] [place] [address]. GI consult is done and they indicated no EGD intervention need today. Hepatitis panel shows AST of 43, ALT of 100 and ALP of 100. Patient is continued on banana bag 2 of 3 today. REVIEW OF SYSTEMS CONSTITUTIONAL: Denies fevers, chills, or night sweats. No unintentional weight loss reported. NEUROLOGICAL: Denies headache, amaurosis fugax, motor weakness, sensory deficit, vertigo/spinning sensation, gait abnormalities, or tremors. ENT: No hearing loss, otalgia, otorrhea, rhinitis, rhinorrhea, hoarseness, or sore throat. CARDIOVASCULAR: Denies any exertional angina, dyspnea on exertion, orthopnea, paroxysmal nocturnal dyspnea, palpitations, life-threatening arrhythmias, claudication. PULMONARY: Denies any cough, phlegm/sputum, hemoptysis, pleuritic chest pain. Positive for shortness of breaths SLEEP: Denies morning headaches, daytime somnolence or napping. Denies difficulty falling asleep, staying asleep, waking from sleep. Denies knowledge of snoring. GASTROINTESTINAL: Positive for abdominal distention. Denied any abdominal pain, nausea, vomiting, melena, hematochezia, hematemesis GENITOURINARY: Denies frequency, urgency, nocturia, hematuria or incontinence (Storage/Irritative symptoms.) Low urinary stream, straining to void, urinary intermittency or hesitancy, splitting of the voiding stream, terminal dribbling. ENDOCRINOLOGIC: Denies polyuria, polydipsia, polyphagia or heat/cold intolerances. HEMATOLOGIC: Denies thrombophilia/previous clots, or coagulopathy/bleeding disorders. ONCOLOGIC: Denies personal history of malignancy. DERMATOLOGIC: Denies rashes or pruritus. PSYCHIATRIC: Denies any suicidal or homicidal ideation. Denies hallucinations. PHYSICAL EXAM GENERAL APPEARANCE: The patient is awake, alert, and oriented, in no acute ca rdiopulmonary distress. NEUROLOGICAL: Cranial nerves II-XII grossly intact. Motor is 5/5 in bilateral upper and lower extremities proximal to distal. No sensory deficits. HEENT: Face is symmetric. Pupils are equal and reactive. Extraocular movements are intact. NECK: Supple. No JVD. No thyromegaly. No submental, submandibular, pre- /postauricular, occipital or supraclavicular lymphadenopathy. CHEST: Normal chest expansion. No Telemetry. LUNGS: Absence of any rales, rhonchi or any wheezing. CARDIOVASCULAR: Regular. S1 and S2 normal. No appreciable rubs, murmurs or gallops. ABDOMEN: Soft, nontender, and mildly distended. There is no rebound, voluntary guarding, or rigidity. : Deferred. No Wolf. EXTREMITIES: Non-edematous and not cyanotic. No clubbing. Good capillary refill. SKIN: Small skin bruising noted in the upper extremity Vital Signs (last 8hr) Date Time Temp Pulse Resp B/P (MAP) Pulse Ox O2 Delivery O2 Flow Rate FiO2 11/18/24 08:00 99 Room Air* 0 21 11/18/24 08:00 98.4 55 16 139/78 99 Room Air LABS: Laboratory: Test 11/18/24 06:38 11/17/24 11:08 11/17/24 10:54 11/17/24 07:55 Range/Units White Blood Count 5.2 4.8-10.8 K/uL Red Blood Count 4.60 4.50-6.20 MIL/uL Hemoglobin 16.0 14.0-18.0 g/dL Hematocrit 44.0 42-54 % Mean Corpuscular Volume 95.7 79-99 fL Mean Corpuscular Hemoglobin 34.8 H 27.0-33.0 pg Mean Corpuscular Hemoglobin Concent 36.4 H 32.0-36.0 g/dL Red Cell Distribution Width 12.6 11.0-15.5 % Platelet Count 68 L 130-400 K/uL Mean Platelet Volume 10.9 H 7.5-10.5 fL Immature Granulocyte % (Auto) 0.4 0-1 % Neutrophils (%) (Auto) 59.1 40.0-77.0 % Lymphocytes (%) (Auto) 28.3 21.0-51.0 % Monocytes (%) (Auto) 8.5 3.0-13.0 % Eosinophils (%) (Auto) 3.5 0.0-8.0 % Basophils (%) (Auto) 0.2 0.0-5.0 % Neutrophils # (Auto) 3.1 1.8-7.7 K/uL Lymphocytes # (Auto) 1.5 1.0-4.8 K/uL Monocytes # (Auto) 0.4 0.1-1.0 K/uL Eosinophils # (Auto) 0.18 0.00-0.70 K/uL Basophils # (Auto) 0.01 0.00-0.20 K/uL Absolute Immature Granulocyte (auto 0.02 0-1 K/uL Nucleated Red Blood Cells 0.0 0.0-0.19 % Sodium Level 140 136-145 mmol/L Potassium Level 4.3 3.5-5.1 mmol/L Chloride Level 104 101-111 mmol/L Carbon Dioxide Level 31 21-32 mmol/L Blood Urea Nitrogen 19 H 7-18 mg/dL Creatinine 1.0 0.5-1.3 mg/dL Glomerular Filtration Rate Calc 85 >90 mL/min Random Glucose 136 H 70-105 mg/dL Total Calcium 8.3 L 8.5-10.1 mg/dL Total Bilirubin 1.3 #H 0.2-1.0 mg/dL Aspartate Amino Transf (AST/SGOT) 43 H 10-37 U/L Alanine Aminotransferase (ALT/SGPT) 100 #H 12-78 U/L Alkaline Phosphatase 103 50-136 U/L Total Protein 6.5 6.0-8.3 g/dL Albumin 3.2 L 3.5-5.0 g/dL Urine Opiates Screen NEGATIVE NEGATIVE Urine Barbiturates Screen NEGATIVE NEGATIVE Urine Phencyclidine Screen NEGATIVE NEGATIVE Urine Amphetamines Screen NEGATIVE NEGATIVE Urine Benzodiazepines Screen NEGATIVE NEGATIVE Urine Cocaine Screen NEGATIVE NEGATIVE Urine Marijuana (THC) Screen NEGATIVE NEGATIVE Segmented Neutrophils % 74 H 40-70 % Band Neutrophils % 1 0-2 % Lymphocytes % (Manual) 17 L 22-44 % Monocytes % (Manual) 5 2-9 % Eosinophils % (Manual) 3 1-6 % Differential Comment MANUAL DIFFERENTIAL White Cell Morphology Comment Platelet Morphology Comment DECREASED Red Blood Cell Morphology ANISO 1+ Gamma Glutamyl Transpeptidase 657 *H 5-85 U/L B-Type Natriuretic Peptide 25 0-100 pg/mL Tumor Marker Alpha Fetoprotein 3.4 0.0-8.4 ng/mL Serum Alcohol < 3 0-10 mg/dL Prothrombin Time 11.1 9.6-11.6 SEC Prothromb Time International Ratio 1.05 0.85-1.15 Activated Partial Thromboplast Time 27.0 26.3-35.5 SEC Hemoglobin A1c 5.9 4.0-6.0 % Estimated Average Glucose (eAG) 123 70-126 mg/dL Direct Bilirubin 0.5 H 0.0-0.3 mg/dL Thyroid Stimulating Hormone (TSH) 5.65 H 0.36-3.74 uIU/mL HIV (1&2) Antibody Non-Reactive Negative HIV P24 Antigen, Qualitative Non-Reactive Negative Current Medications Medications (Trade) Dose Ordered Sig/Judi Route PRN Reason Start Time Stop Time Status Last Admin Dose Admin Chlordiazepoxide HCl (LIBrium 25 MG CAP) 25 mg Q4H PRN PO ALCOHOL WITHDRAWAL PROTOCOL 11/17/24 10:00 11/24/24 09:59 Famotidine (Pepcid 20mg Vial) 20 mg BID IV 11/17/24 21:00 12/17/24 20:59 11/18/24 08:20 20 MG Hydralazine HCl (APRESOLine 20MG INJ) 10 mg Q6H PRN IV ADMINISTER FOR SBP > 180 11/17/24 10:00 12/17/24 09:59 Pharmacy Profile Note (Pharmacy Communication) AD MISC 11/17/24 10:30 11/18/24 10:36 DC Pharmacy Profile Note (Pharmacy Communication) 1 each PROTOCOL PRN MISC ETOH Withdrawal Score changes 11/17/24 10:00 11/24/24 09:59 Thiamine HCl 100 mg/Folic Acid 1 mg/Sodium Chloride 1,011.2 ml @ 100 mls/ hr Q24H IV 11/17/24 11:00 11/19/24 21:07 11/17/24 12:31 100 MLS/HR DIAGNOSTICS / RADIOLOGY: [ ] ASSESSMENT: Moderate Thrombocytopenia Elevated LFT History of alcohol use PLAN: Elevated LFT and moderate thrombocytopenia -in reference to thrombocytopenia. [place] [address]. Hepatitis panel shows AST of 43, ALT of 100 and ALP of 100 - HIV, KAMLESH results are pending. - CT abdomen/pelvis showed liver cirrhosis, mild splenomegaly, no acute process in abdomen or pelvis. - Thrombocytopenia likely in setting of alcohol use. Hematology consult pending. -patient to be monitored for alcohol withdrawals. Patient to be continued on banana bag -closely monitor for hypertension. We will consider initiation of antihypertensive blood pressure remains elevated. Patient remains normotensive when seen at bedside - closely monitor and look for any signs of bleeding or abrupt drop in platelet count. - serum alcohol level < 3 GI prophylaxis: Famotidine 20 mg b.i.d. ATTESTATION BY PHYSICIAN I have seen and examined the patient. I reviewed the documentation, medical decision making, and treatment plan as noted by the resident provider above. I agree with the findings and plan of care. aLuro Tinsley MD, BHAVANI MD Nov 18, 2024 12:04
[2024-11-18] MEDS ORDERED: COMPOUND IV REFRIGERATED 1 EACH IVSOLN MISC PRN (12:30)
--- NOTE | 2024-11-18 14:21 | NUR ---
DCP: HOME SW met with pt who states he lives at home with his Ani Zamora [phone]. Couple lives in mobile home and denies issues affording home or food. Pt states he is unemployed/retired, active, works around the house, maintains outside of the house. Pt states he is still able to do self care on his own, drives, uses no DME or in home care services. Pt last saw Dr Ricks in [place] 2 yrs ago and uses [facility] for rx meds. Pt denies need for SNF, will return home at me. Addendum: 11/18/24 at 1429 by AZAR CAVANAUGH Amended: Links added.
[2024-11-18 16:00] VITALS: BP 118/70; PULSE 56; RESP 15; TEMP 98.1
[2024-11-18 16:12] LABS: HEPATITIS A IGM ANTIBODY Non-Reactive (Nonreactive); HEPATITIS B CORE IGM ANTIBODY Non-Reactive (Negative)
[2024-11-18 20:00] VITALS: BP 122/74; PULSE 60; RESP 20; TEMP 98.3; O2SAT 99
[2024-11-19] VITALS: BP 122/81; PULSE 62; RESP 20; TEMP 97.6
[2024-11-19 04:00] VITALS: BP 119/75; PULSE 60; RESP 20; TEMP 98.1
[2024-11-19 04:49] LABS: NUCLEATED RED BLOOD CELLS 0.0 % (0.0-0.19); PLATELET COUNT (AUTO) 53.0 K/uL (130-400); RED BLOOD CELL COUNT(AUTO) 4.48 MIL/uL (4.50-6.20); RED CELL DISTRIBUTION WIDTH 12.2 % (11.0-15.5); WHITE BLOOD COUNT (AUTO) 5.5 K/uL (4.8-10.8)
[2024-11-19 05:00] LABS: CREATININE 1.1 mg/dL (0.5-1.3); GLOMERULAR FILTR. RATE CALC 75.0 mL/min (>90); GLUCOSE,RANDOM 149.0 mg/dL (70-105); SODIUM SERUM 137.0 mmol/L (136-145); UREA NITROGEN, BLOOD 19.0 mg/dL (7-18)
[2024-11-19 08:00] VITALS: BP 135/88; PULSE 62; RESP 18; TEMP 98.2; O2SAT 97
[2024-11-19 12:00] VITALS: BP 119/78; PULSE 56; RESP 16; TEMP 97.4
--- NOTE | 2024-11-19 12:04 | DS ---
Discharge Summary Hospital Course Summary: Mr Lind, a 64-year-old male with history of alcohol use presented to the hospital secondary to abnormal labs. Patient had seen his primary care provider in [place] due to concern for gout. He had his labs checked including CBC, CMP. He was noted to have low platelet count of [id number] and his liver markers were also elevated including GGT. He was treated for gout and was recommended to come to the hospital for further evaluation. Patient denies any chest pain, abdominal pain, nausea, vomiting, melena, hematochezia, hematemesis. He does state he gets short of breath with activity sometimes but is able to perform yd work at home. Denied any falls, syncopal episode. Denied any epistaxis, mucosal bleeding. Denied any previous history of excessive bleeding from cuts. He has noted bruises on his upper extremity. Denied any diarrhea, fever, chills, night sweats, weight loss. He was also noted to have elevated blood pressure in his primary care's office with systolics noted to be in the 180s. currently does not take any medications at home. He also does not check his blood pressure at home. Patient denied any upper or lower extremity weakness. The patient does endorse smoking alcohol and he drinks around 4-5 beers every other day for at least 20 years. His last drink was two days ago. Denies any anxiety, hallucinations, suicidal, homicidal ideation. Secondary to abnormal aspiration was brought to the hospital for further evaluation. In the ED labs were notable for white count of 5.6, hemoglobin was 17.3, [place] [address], was 140, potassium was 4.0, chloride was 103, creatinine was 1.0, blood glucose was 149. Patient had a abdominal ultrasound done in [place] which is currently in [place]. Per patient it was noted to be normal On presentation to the ED patient's temperature was 97.9, heart rate was 61, blood pressure was 141/90, patient was saturating 98% on room Upon hospitalization we have ordered GI consult, Hematology consult, hepatitis, HIV, autoimmune disorders panel including mitochondrial M2 ab, smooth muscle IgG ab, liver/kidney microsomal ab, KAMLESH, alpha antitrypsin, ceruloplasmin levels which were ruled out. Mitochondrial M2 ab and smooth muscle IgG ab are pending at discharge. He received on [address] abdomen/pelvis showed liver cirrhosis, mild splenomegaly, no acute process in abdomen or pelvis. On day of discharge the patient is clinically and hemodynamically stable. His cirrhosis will be managed outpatient with Gastroenterology follow up. Bus Driver Supervisor(s): Dr.Anthony Britni MD [facility] [address] [place] [id number] GASTROENTEROLOGY CONSULTATION NOTE Date of Consultation: Nov 17, 2024 Time of Consultation: 13:36 History of Present Illness: [ WBC 5.6, hemoglobin 17.3, hematocrit 46.8, platelets 63. Mood chemistry significant for total bilirubin 1.7, direct bilirubin five AST 48, ALT 130, albumin 3.8, alkaline phos 140. CT of abdomen pelvis significant for liver cirrhosis, and mild splenomegaly. Chest x-ray negative for any acute cardiopulmonary pathology. Abdominal ultrasound is pending. On exam patient is awake alert and oriented x3. He is resting in stretcher in ER bed 15 in no acute distress. Patient reports drinking five beers daily for the past 20 years. He has bilateral breath sounds are clear. Abdomen is soft and nondistended. CT scan results given to patient. And pending abdominal ultrasound. Recommended abstaining from alcohol intake. Liver serologies are ordered. Patient verbalized understanding. ] Review of Systems: CONSTITUTIONAL: No malaise or change in sensation of wellbeing. ENMT: No rhinorrhea, otorrhea, sinus pain, ear ache. CARDIOVASCULAR: No angina, palpitations, orthopnea or paroxysmal dyspnea. RESPIRATORY: No SOB. GASTROINTESTINAL: No abdominal pain, nausea, vomiting, diarrhea, hematemesis, melena or change in the patient's habitual bowel movements consistency/number. GENITOURINARY: No dysuria, hematuria or change in bladder continence. MUSCULOSKELETAL: No new muscle pain or decrease in muscular strength. No new abbey nt swelling, redness or tenderness. SKIN: No new rash. Past Medical History: History of alcohol use PAST SURGICAL HISTORY: Denied any previous surgical history PAST SOCIAL HISTORY: Denied any smoking. Drinks around 4-5 beers every other day for at least 20 years. Denied any drug use FAMILY HISTORY: Denied any pertinent family history Coded Allergies: No Known Drug Allergies (Unverified Allergy, Unknown, 11/17/24) Coded Allergies: No Known Drug Allergies (Unverified Allergy, Unknown, 11/17/24) Physical Exam: GEN: Awake, alert, oriented in person, time and place, and in no acute distress. HEENT: No rhinorrhea. Oral pharyngeal mucosa is pink, moist and within normal limit. CHEST: Inspection, palpation of the chest were unremarkable. Lung auscultation revealed normal breath sounds bilaterally. CARDIAC: PMI is within normal limits. Heart sounds are regular. ABD: Soft, non-tender and not distended. No peritoneal signs on palpation. No organomegaly. Normal bowel sounds. EXT: No cyanosis or clubbing. No edema. SKIN: Intact. No rashes. JOINTS: No evidence of synovitis or acute arthritis. NEURO: Alert and oriented to name, place and person. No focal motor deficits. Normal speech. Strength is normal. Vital Sign (Last 24 Hours) 11/17/24 12:00 Temp 97.9 Pulse 60 Resp 16 B/P (MAP) 130/92 Pulse Ox 97 O2 Delivery Room Air* O2 Flow Rate 0 FiO2 21 Laboratory: [ ] Laboratory: Test 11/17/24 11:08 11/17/24 10:54 11/17/24 07:55 11/17/24 07:53 Range/Units Urine Opiates Screen NEGATIVE NEGATIVE Urine Barbiturates Screen NEGATIVE NEGATIVE Urine Phencyclidine Screen NEGATIVE NEGATIVE Urine Amphetamines Screen NEGATIVE NEGATIVE Urine Benzodiazepines Screen NEGATIVE NEGATIVE Urine Cocaine Screen NEGATIVE NEGATIVE Urine Marijuana (THC) Screen NEGATIVE NEGATIVE White Blood Count 5.4 4.8-10.8 K/uL Red Blood Count 5.00 4.50-6.20 MIL/uL Hemoglobin 17.5 14.0-18.0 g/dL Hematocrit 47.3 42-54 % Mean Corpuscular Volume 94.6 79-99 fL Mean Corpuscular Hemoglobin 35.0 H 27.0-33.0 pg Mean Corpuscular Hemoglobin Concent 37.0 H 32.0-36.0 g/dL Red Cell Distribution Width 12.6 11.0-15.5 % Platelet Count 60 L 130-400 K/uL Mean Platelet Volume 10.5 7.5-10.5 fL Segmented Neutrophils % 74 H 40-70 % Band Neutrophils % 1 0-2 % Lymphocytes % (Manual) 17 L 22-44 % Monocytes % (Manual) 5 2-9 % Eosinophils % (Manual) 3 1-6 % Nucleated Red Blood Cells 0.0 0.0-0.19 % Differential Comment MANUAL DIFFERENTIAL White Cell Morphology Comment Platelet Morphology Comment DECREASED Red Blood Cell Morphology ANISO 1+ Gamma Glutamyl Transpeptidase 657 *H 5-85 U/L B-Type Natriuretic Peptide 25 0-100 pg/mL Serum Alcohol < 3 0-10 mg/dL Prothrombin Time 11.1 9.6-11.6 SEC Prothromb Time International Ratio 1.05 0.85-1.15 Activated Partial Thromboplast Time 27.0 26.3-35.5 SEC Hemoglobin A1c 5.9 4.0-6.0 % Estimated Average Glucose (eAG) 123 70-126 mg/dL Total Bilirubin 1.7 H 0.2-1.0 mg/dL Direct Bilirubin 0.5 H 0.0-0.3 mg/dL Aspartate Amino Transf (AST/SGOT) 48 H 10-37 U/L Alanine Aminotransferase (ALT/SGPT) 130 H 12-78 U/L Alkaline Phosphatase 130 50-136 U/L Total Protein 7.7 6.0-8.3 g/dL Albumin 3.8 3.5-5.0 g/dL Thyroid Stimulating Hormone (TSH) 5.65 H 0.36-3.74 uIU/mL HIV (1&2) Antibody Non-Reactive Negative HIV P24 Antigen, Qualitative Non-Reactive Negative Immature Granulocyte % (Auto) 0.4 0-1 % Neutrophils (%) (Auto) 59.8 40.0-77.0 % Lymphocytes (%) (Auto) 28.5 21.0-51.0 % Monocytes (%) (Auto) 7.4 3.0-13.0 % Eosinophils (%) (Auto) 3.4 0.0-8.0 % Basophils (%) (Auto) 0.5 0.0-5.0 % Neutrophils # (Auto) 3.4 1.8-7.7 K/uL Lymphocytes # (Auto) 1.6 1.0-4.8 K/uL Monocytes # (Auto) 0.4 0.1-1.0 K/uL Eosinophils # (Auto) 0.19 0.00-0.70 K/uL Basophils # (Auto) 0.03 0.00-0.20 K/uL Absolute Immature Granulocyte (auto 0.02 0-1 K/uL Sodium Level 140 136-145 mmol/L Potassium Level 4.0 3.5-5.1 mmol/L Chloride Level 103 101-111 mmol/L Carbon Dioxide Level 29 21-32 mmol/L Blood Urea Nitrogen 16 7-18 mg/dL Creatinine 1.0 0.5-1.3 mg/dL Glomerular Filtration Rate Calc 85 >90 mL/min Random Glucose 149 H 70-105 mg/dL Total Calcium 9.2 8.5-10.1 mg/dL Current Medications Medications (Trade) Dose Ordered Sig/Judi Route PRN Reason Start Time Stop Time Status Last Admin Dose Admin Chlordiazepoxide HCl (LIBrium 25 MG CAP) 25 mg Q4H PRN PO ALCOHOL WITHDRAWAL PROTOCOL 11/17/24 10:00 11/24/24 09:59 Famotidine (Pepcid 20mg Vial) 20 mg BID IV 11/17/24 21:00 12/17/24 20:59 Hydralazine HCl (APRESOLine 20MG INJ) 10 mg Q6H PRN IV ADMINISTER FOR SBP > 180 11/17/24 10:00 12/17/24 09:59 Pharmacy Profile Note (Pharmacy Communication) AD MISC 11/17/24 10:30 11/24/24 10:29 Pharmacy Profile Note (Pharmacy Communication) 1 each PROTOCOL PRN MISC ETOH Withdrawal Score changes 11/17/24 10:00 11/24/24 09:59 Thiamine HCl 100 mg/Folic Acid 1 mg/Sodium Chloride 1,011.2 ml @ 100 mls/ hr Q24H IV 11/17/24 11:00 11/19/24 21:07 11/17/24 12:31 100 MLS/HR Diagnostics / Radiology: [COPY/PASTE HERE IF NO REPORTS PLEASE DELETE SECTION] Assessment: [ Abnormal liver enzymes Gout Liver cirrhosis] Plan: No gi Endoscopic intervention at this time. Liver serologies ordered. Abdominal ultrasound pending Please call with questions, concerns, and/or change in clinical status. Thank you for this consult KIKO RHAMAN NP Nov 17, 2024 13:39 Electronically Signed by: Electronically Co-Signed by: Dr Gigi Ryder MD Gastroenterology Dr Singh Bee MD Hematology and Oncology Procedure(s): [place] [id number] [place] [address] IMAGING REPORT Signed PATIENT: WILLA LIND MR#: [id number] : 1960 SEX: M AGE: 64 LOCATION: [facility] ORDER 5 STATUS: ADM IN REPORT#: [id number] SERVICE 0 REASON: ABDOMINAL DISTENTION, ELEVATED lft ORDERING PHYSICIAN: NYA LION MD PROCEDURE: ABD PEL WO - CT ABDOMEN/PELVIS W/O CONTRAST EXAM: CT Abdomen and Pelvis without IV contrast CLINICAL HISTORY: Abdominal distention. Elevated LFT. TECHNIQUE: Thin collimated axial CT images of the abdomen and pelvis were obtained with sagittal and coronal reformatted images also submitted. CT scan is done according to ALARA (As Low As Reasonably Achievable). CONTRAST: None. COMPARISON: None. FINDINGS: Unremarkable visualized lung parenchyma. No focal abnormality within the gallbladder, pancreas, adrenals, or kidneys. The liver is small with diffuse surface nodularity, suggesting liver cirrhosis. Multiple tiny calcifications within the liver. Mild splenomegaly. There is no obvious bowel wall thickening. Bowel loops are normal in caliber without evidence of obstruction or ileus. The appendix is normal. There is no abnormality within the urinary bladder. Unremarkable reproductive organs. No lymphadenopathy. No free fluid. Bilateral small inguinal hernia containing fat. There is no acute osseous abnormality. Mild thoracolumbar spondylosis. IMPRESSIONS: No acute process in the abdomen or pelvis. Liver cirrhosis. Mild splenomegaly. /[place] DICTATED BY: MORGAN CERVANTES Jr., MD DATE: 11/17/241228 ELECTRONICALLY SIGNED BY: MORGAN CERVANTES Jr., MD DATE: 11/17/241228 [place] [address] IMAGING REPORT Signed PATIENT: WILLA LIND MR#: [id number] : 1960 SEX: M AGE: 64 LOCATION: [facility] ORDER 5 STATUS: ADM IN [facility] REPORT#: [id number] SERVICE REASON: SOB ORDERING PHYSICIAN: NYA LION MD PROCEDURE: CXR1VW - CHEST 1VW EXAM: CR Chest, 1 View. CLINICAL HISTORY: SOB COMPARISON: None provided. FINDINGS: LUNGS: The lungs show no infiltrate or other acute finding. PLEURAL SPACES: No pleural effusion or pneumothorax. MEDIASTINUM: Cardiac size and mediastinal contours within normal limits. BONES: No acute osseous abnormality. IMPRESSION: No acute cardiopulmonary pathology is evident. /[place] DICTATED BY: MORGAN CERVANTES Jr., MD DATE: 11/17/241213 ELECTRONICALLY SIGNED BY: MORGAN CERVANTES Jr., MD DATE: 11/17/241213 [address] [address] IMAGING REPORT Signed PATIENT: WILLA LIND MR#: [id number] : 1960 SEX: M AGE: 64 LOCATION: [facility] ORDER 35 STATUS: ADM IN REPORT#: [id number] SERVICE 34 REASON: assess fpr cirrhosis, gall bladder and CBD. Elevated LFT ORDERING PHYSICIAN: NYA LION MD PROCEDURE: ABDRUQLTD - US ABDOMINAL RUQ\LTD EXAM: US Abdomen, Right Upper Quadrant. CLINICAL HISTORY: Assess for cirrhosis, gallbladder, and CBD. Elevated LFT. TECHNIQUE: Right upper quadrant sonography performed with image documentation. COMPARISON: CT from earlier today. FINDINGS: LIVER: Enlarged in size, measuring 17.5 cm, with coarse echotexture and surface nodularity. A small, simple cyst measuring 0.8 cm is seen in the left lobe. No other mass. GALLBLADDER: The gallbladder appears normal. Normal wall thickness, 0.3 cm. No gallstones are evident. COMMON BILE DUCT: No dilatation. PANCREAS: The visualized pancreas appears within normal limits. The distal pancreas is obscured by bowel gas. RIGHT KIDNEY: Unremarkable. Normal renal contours. No renal mass or calculus. No hydronephrosis.IMPRESSION: 1. Enlarged liver with coarse echotexture and surface nodularity, consistent with cirrhosis. /[place] DICTATED BY: MORGAN CERVANTES Jr., MD DATE: 11/17/241436 ELECTRONICALLY SIGNED BY: MORGAN CERVANTES Jr., MD DATE: 11/17/241436 Assessment/Plan: Discharge diagnosis Moderate Thrombocytopenia Elevated LFT History of alcohol use Assessment Admission Date: 11/17/2024 Discharge Date: 11/19/2024 Disposition: Home Condition at Discharge: Stable Activity: As tolerated Home Medications: No Active medications Follow-Up Appointments: Primary Care Provider: within 3 days of discharge Funder: within 1-2 weeks of discharge Discharge Instructions: Avoid alcohol, NSAIDs, and herbal supplements that can harm the liver or increased bleeding risk Use soft toothbrush, electric razor, and avoid injury or falls Follow a low-sodium diet to prevent fluid buildup and eat balanced meals. Limit raw seafood to reduce infection risk Rest as needed, maintain gentle daily activity, avoid heavy lifting or activities that risk trauma Go to emergency or call 911 immediately if you vomit blood or pass black tarry stools, severe abdominal swelling or pain, confusion, disorientation or excessive sleepiness. Follow up Primary care physician in 3 days Follow up with pediatric radiologist in 1-2 weeks Home Medications: No Active Prescriptions or Reported Meds Time spent arranging discharge: 1-30 minutes ATTESTATION BY PHYSICIAN I have seen and examined the patient. I reviewed the documentation, medical decision making, and treatment plan as noted by the resident provider above. I agree with the findings and plan of care. Lauro Tinsley MD, BHAVANI MD Nov 19, 2024 12:04
--- NOTE | 2024-11-19 12:40 | NUR ---
PATIENT IS DISCHARGED. IV TAKEN OUT WITH CATHETER INTACT. EDUCATION GIVEN TO PATIENT WELL FOLLOW UP APPOINTMENT.
[2024-11-23 19:11] LABS: ALPHA-1-ANTITRYPSIN 141 mg/dL (101-187)
== END 2024-11-19 12:50 | disposition home or self-care (01) | DRG 813 ==
LOC: EDH 07:20 → OBSVTOIN 07:21 → EDHIP 07:21 → 4CH 11-18 02:09
PROVIDERS: ADMIT Internal Medicine; ATTEND Internal Medicine
DX: D69.59 Other secondary thrombocytopenia (principal); K74.60 Unspecified cirrhosis of liver; D69.3 Immune thrombocytopenic purpura; M10.9 Gout, unspecified
CPT/HCPCS: 36415; 71045; 74176; 76705; 80048; 80053; 80074; 80076; 80305; 82103; 82104; 82105; 82390; 82977; 83036; 83735; 83880; 84443; 85025; 85027; 85610; 85730; 86015; 86038; 86215; 86235; 86376; 86381; 86701; 87390; 99285; G0378; J3411; J3490; J7030